=== PATIENT | female | born 1990 | race American Indian/Alaskan Native ===

== ENCOUNTER 2018-10-01 08:09 | Emergency (ER) | payer MEDICAID ==
--- NOTE | 2018-10-01 09:36 | Emergency Department Report ---
ED Dysuria HPI - HPI Chief Complaint: Urogenital-Female Stated Complaint: VAGINAL DISCHARGE Time Seen by Provider: 10/01/18 09:36 Duration: 5 Days Severity: Mild Symptoms: Dysuria: Yes, Frequency: No, Suprapubic Pain: No, Flank Pain: No, Fever: No, Hematuria: No, Abdominal Pain: No, Previous UTI's: No Other History: Patient is a 28-year-old female who comes to the emergency room complaining of vaginal discharge. She states that she has not had a sexual partner in 2 months. Patient states that she has discharge that is yellow and WITH A foul odor ED Review of Systems ROS: Stated complaint: VAGINAL DISCHARGE Other details as noted in HPI Comment: All other systems reviewed and negative Constitutional: denies: chills Eyes: denies: eye pain ENT: denies: ear pain Respiratory: denies: see HPI Cardiovascular: denies: palpitations Gastrointestinal: denies: abdominal pain, nausea, vomiting Genitourinary: as per HPI, discharge. denies: urgency, dysuria, frequency, hematuria, abnormal menses, dyspareunia Musculoskeletal: denies: back pain Skin: denies: rash, lesions Neurological: denies: headache Psychiatric: denies: depression Hematological/Lymphatic: denies: easy bleeding ED Past Medical Hx - Past Medical History Previous Medical History?: No - Surgical History Past Surgical History?: No - Family History Family history: no significant - Social History Smoking Status: Never Smoker Substance Use Type: None - Medications Home Medications: Home Medications Medication Instructions Recorded Confirmed Last Taken Type metroNIDAZOLE [Flagyl] 500 mg PO Q12HR #20 tab 10/01/18 Unknown Rx Dysuria Exam - Exam General: Vital signs noted. No distress. Alert and acting appropriately. Exam: Yes Moist Mucous Membranes, No CVA Tenderness, No Abdominal Tenderness, No Rigidity or Guarding Exam: A/O. ABD SNT. VAG EXAM - YELLOW DISCHARGE, MALODOROUS, NO CERVIAL MOTION TENDERNESS. NO ADENEXAL PAIN ED Course Vital Signs 10/01/18 08:18 Temperature 98.2 F ED Medical Decision Making - Medical Decision Making PREG NEG UA NOTED WET PREP NOTED TREATED FOR TRICH/BV GC PENDING Lab Results 10/01/18 Range/Units Unknown Urine Color Yellow (Yellow) Urine Turbidity Slightly-cloudy (Clear) Urine pH 5.0 (5.0-7.0) Ur Specific [place] 1.019 (1.003-1.030) Urine Protein <15 mg/dl (Negative) mg/dL Urine Glucose (UA) Neg (Negative) mg/dL Urine Ketones Neg (Negative) mg/dL Urine Blood Neg (Negative) Urine Nitrite Neg (Negative) Urine Bilirubin Neg (Negative) Urine Urobilinogen < 2.0 (<2.0) mg/dL Ur Leukocyte Esterase Tr (Negative) Urine WBC (Auto) 2.0 (0.0-6.0) /HPF Urine RBC (Auto) 4.0 (0.0-6.0) /HPF U Epithel Cells (Auto) 11.0 (0-13.0) /HPF Urine Bacteria (Auto) 1+ (Negative) /HPF Urine Mucus 1+ /HPF Urine HCG, Qual Negative (Negative) - Differential Diagnosis RO STD V UTI V PREG Critical care attestation.: If time is entered above; I have spent that time in minutes in the direct care of this critically ill patient, excluding procedure time. ED Disposition Clinical Impression: Trichomonal vaginitis, Bacterial vaginosis Disposition: DC-01 TO HOME OR SELFCARE Is pt being admited?: No Does the pt Need Aspirin: No Condition: Stable Instructions: Bacterial Vaginosis (ED) Prescriptions: metroNIDAZOLE [Flagyl] 500 mg PO Q12HR #20 tab Referrals: DEVON KOO DO [Primary Care Provider] - 3-5 Days Forms: STI Treatment and Prevention Time of Disposition: 10:26
[2018-10-01 10:44] LABS: Bacteria,Urine 1+ /HPF (Negative); Bilirubin,Urine NEG (Negative); Blood,Urine NEG (Negative); Color,Urine Yellow (Yellow); Mucus,Urine 1+ /HPF; Protein,Urine <15 mg/dL mg/dL (Negative); Urobilinogen,Urine < 2.0 mg/dL (<2.0)
[2018-10-01 10:49] LABS: HCG Qualitative,Urine Negative (Negative)
== END 2018-10-01 11:49 | disposition home or self-care (01) ==
LOC: ED 08:09
DX: A59.01 Trichomonal vulvovaginitis (principal); N76.0 Acute vaginitis
CPT/HCPCS: 81001; 81025; 87210; 87591; 99284